=== PATIENT | male | born 1985 | race Caucasian/White ===

== ENCOUNTER 2016-11-19 13:37 | Emergency (ER) | payer MEDICAID, OTHER ==
[~2016-11-19] VITALS: Ht 177.8 cm; Wt 90.5 kg
[2016-11-19 13:56] VITALS: Ht 177.8 cm; Wt 90.5 kg
[2016-11-19] MEDS ORDERED: HYDROCODONE/APAP (10/325) TAB PO ONE (15:00)
--- NOTE | 2016-11-19 15:08 | ERD ---
ER Documentation Chief Complaint Date/Time DATE: 11/19/16 TIME: 15:00 Chief Complaint cough x 2 days, body aches HPI This is a 31 male who presented to the emergency Department taken plenty of headache, pain behind his eyes, body aches, fevers, intermittent cough, dizziness and diarrhea for the past 2 days. Patient states he is taking Advil but it is not helping. States that he thinks he had this one time before he had pneumonia. Denies any vomiting, or cough. ROS All systems reviewed and are negative except as per history of present illness. Medications Home Meds Active Scripts Guaifenesin-Dextromethorphan* (Robitussin* DM) 100MG/10MG/5ML Syrup, 10 ML PO Q4H Y for COUGH for 5 Days, ML Prov:TAYLER DUBON PA-C 11/19/16 Loperamide Hcl* (Imodium*) 2 Mg Capsule, 2 MG PO .AFTER EA LOOSE BM Y for DIARRHEA, #10 TAB Prov:TAYLER DUBONC 11/19/16 Hydrocodone/Acetaminophen (Cameron 10-325 Tablet) 1 Each Tablet, 1 TAB PO Q6H Y for PAIN, #10 TAB Prov:TAYLER DUBON PA-C 11/19/16 Acetaminophen* (Tylophen*) 500 Mg Capsule, 2 CAP PO Q8H Y for PAIN AND OR ELEVATED TEMP, #30 CAP Prov:TAYLER DUBONC 11/19/16 Ibuprofen* (Motrin*) 800 Mg Tab, 800 MG PO Q6, #30 TAB Prov:TAYLER DUBONC 11/19/16 Oseltamivir Phosphate* (Tamiflu*) 75 Mg Capsule, 75 MG PO BID for 5 Days, CAP Prov:TAYLER DUBON-C 11/19/16 Allergies Allergies: Coded Allergies: No Known Allergy (Unverified , 11/19/16) Physical Exam Vitals Vital Signs Date Time Temp Pulse Resp B/P Pulse Ox O2 Delivery O2 Flow Rate FiO2 11/19/16 13:56 98.3 118 20 139/76 97 Physical Exam Const: No acute distress Head: Atraumatic Eyes: Lateral conjunctival erythema. No purulent drainage. ENT: His TMs normal. Nose no drainage. Throat no erythema no exudate. Neck: Full range of motion..~ No meningismus. Resp: Clear to auscultation bilaterally. No absent breath sounds. No wheezing. Cardio: Regular rate and rhythm, no murmurs Abd: Soft, non tender, non distended. Normal bowel sounds Skin: No petechiae or rashes Neur: Awake and alert Psych: Normal Mood and Affect Results 24 hrs Current Medications Medications (Trade) Dose Ordered Sig/Xin Route PRN Reason Start Time Stop Time Status Last Admin Dose Admin Acetaminophen/ Hydrocodone Bitart (Cameron (10/325)) 1 tab ONCE ONCE PO 11/19/16 15:00 11/19/16 15:01 DC 11/19/16 15:20 Ketorolac Tromethamine (Toradol) 30 mg ONCE STAT IV 11/19/16 15:50 11/19/16 15:53 DC Procedures/MDM This is a 31-year-old male presents to the emergency department today with multiple complaints. Patient was complaining of dizziness and he was tachycardic on intake and therefore did obtain an EKG. patient is afebrile here in the emergency department. His only had intermittent cough Lungs are clear and I do not feel he requires a chest x-ray. EKG read and interpreted by luz maria Goldstein. Rate [address] elevation. No QT prolongation. Sinus tachycardia. Low suspicion for acute AK, PE, pericarditis Patient has no abdominal pain on physical exam. Low suspicion for any acute surgical abdomen Patient was given Cameron here in the emergency department for his headache and body aches. I will give him a prescription for Tylenol, Motrin, short course of Cameron, Imodium, Robitussin and Tamiflu for home At this time the patient is stable for discharge and outpatient management. Patient should follow up with their PCP in the next 1-2 days. They may return to the emergency department sooner for any persistent or worsening of symptoms. Patient understood and agreed with the plan. Prior to discharge patient was complaining that he was unable to walk and he does not feel that he has flu. Patient was complaining that he does not feel that his complaints were taken seriously and he thinks that there something worse wrong with him. I discussed this with both the patient and his . Patient did not want any of the prescriptions that he was prescribed. I discussed the patient with Dr. Goldstein and given that patient was complaining of difficulty walking the decision was made to obtain laboratory work, IV toradol, and a UA. Labs and UA was still pending at time of signout to Dr. Goldstein. Departure Diagnosis: Primary Impression: Influenza-like symptoms Condition: TAYLER Dee PA-C Nov 19, 2016 15:08
[2016-11-19] MEDS ORDERED: OSLT75C PO (15:14)
[2016-11-19] MEDS ORDERED: ACET500C5 PO (15:15)
[2016-11-19] MEDS ORDERED: HYDR-902 PO (15:15)
[2016-11-19] MEDS ORDERED: IBUP800T25 PO (15:15)
[2016-11-19] MEDS ORDERED: LOPE2CAP PO (15:16)
[2016-11-19] MEDS ORDERED: UDROBDM PO (15:18)
[2016-11-19] MEDS ORDERED: KETOROLAC 30 MG INJ IV STA (15:50)
[2016-11-19] MEDS ORDERED: ACETAMINOPHEN 500 MG TAB PO STA (16:09)
--- NOTE | 2016-11-19 16:34 | RADRPT ---
PROCEDURE: XR Chest. CLINICAL INDICATION: chest pain, cough TECHNIQUE: Single frontal view of the chest was obtained COMPARISON: None FINDINGS: The heart and mediastinum are within normal limits. The lungs are clear. There is no pleural effusion or pneumothorax. RPTAT: AA IMPRESSION: No acute disease. .Steve Driscoll MD, Date Time Electronically viewed and signed by .Steve Driscoll MD, on 11/19/2016 16:34 .S/
[2016-11-19 16:36] LABS: BASOPHILS % 0.5 % (0.0-2.0); EOSINOPHILS # 0.1 10^3/ul (0.0-0.5); EOSINOPHILS % 1.5 % (0.0-7.0); HEMATOCRIT 47.4 % (42.0-52.0); HEMOGLOBIN 16.2 g/dl (14.0-18.0); LYMPHOCYTES # 0.6 10^3/ul (0.8-2.9); LYMPHOCYTES % 7.5 % (15.0-51.0); MEAN CORPUSCULAR HEMOGLOBIN 29.1 pg (29.0-33.0); MEAN CORPUSCULAR HGB CONC 34.2 g/dl (32.0-37.0); MEAN CORPUSCULAR VOLUME 85.2 fl (82.0-101.0); MEAN PLATELET VOLUME 7.8 fl (7.4-10.4); MONOCYTE # 1.2 10^3/ul (0.3-0.9); MONOCYTES % 13.7 % (0.0-11.0); NEUTROPHIL # 6.5 10^3/ul (1.6-7.5); NEUTROPHILS % 76.8 % (39.0-77.0); PLATELET COUNT 214 10^3/UL (140-440); RED BLOOD COUNT 5.56 10^6/ul (4.70-6.10); RED CELL DISTRIBUTION WIDTH 12.6 % (11.5-14.5); UNCORRECTED WBC 8.4 10^3/ul (4.8-10.8); WHITE BLOOD COUNT 8.4 10^3/ul (4.8-10.8)
[2016-11-19 16:38] LABS: CONDITION 1
[2016-11-19 16:41] LABS: ALBUMIN 4.7 g/dl (3.3-4.9); CHLORIDE 103 mmol/L (97-110); SODIUM 143 mmol/L (135-144)
[2016-11-19 16:42] LABS: POTASSIUM 4.3 mmol/L (3.5-5.1)
[2016-11-19 16:44] LABS: ALANINE AMINOTRANSFERASE 150 IU/L (13-69); ALKALINE PHOSPHATASE 118 IU/L (42-121); ANION GAP 16 (8-16); ASPARTATE AMINO TRANSFERASE 86 IU/L (15-46); BILIRUBIN,INDIRECT 0.2 mg/dl (0-1.1); BILIRUBIN,TOTAL 0.2 mg/dl (0.2-1.3); BLOOD UREA NITROGEN 8 mg/dl (7-20); CARBON DIOXIDE 28 mmol/L (21-31); CREATININE 0.86 mg/dl (0.61-1.24); GLUCOSE 119 mg/dl (70-220); TOTAL PROTEIN 8.6 g/dl (6.1-8.1)
[2016-11-19 16:45] LABS: CALCIUM 9.1 mg/dl (8.4-10.2); CREATINE KINASE 114 IU/L (23-200)
[2016-11-19 16:53] LABS: CK-MB 0.41 ng/ml (0.0-2.4)
[2016-11-19 16:57] LABS: TROPONIN-I < 0.010 ng/ml (0.00-0.12)
--- NOTE | 2016-11-19 17:23 | ERD ---
ER Documentation Chief Complaint Date/Time DATE: 11/19/16 TIME: 17:22 Chief Complaint cough x 2 days, body aches ROS All systems reviewed and are negative except as per history of present illness. Medications Home Meds Active Scripts Guaifenesin-Dextromethorphan* (Robitussin* DM) 100MG/10MG/5ML Syrup, 10 ML PO Q4H Y for COUGH for 5 Days, ML Prov:TAYLER DUBON PA-C 11/19/16 Loperamide Hcl* (Imodium*) 2 Mg Capsule, 2 MG PO .AFTER EA LOOSE BM Y for DIARRHEA, #10 TAB Prov:TAYLER DUBONC 11/19/16 Hydrocodone/Acetaminophen (Coats 10-325 Tablet) 1 Each Tablet, 1 TAB PO Q6H Y for PAIN, #10 TAB Prov:TAYLER DUBON PA-C 11/19/16 Acetaminophen* (Tylophen*) 500 Mg Capsule, 2 CAP PO Q8H Y for PAIN AND OR ELEVATED TEMP, #30 CAP Prov:TAYLER DUBONC 11/19/16 Ibuprofen* (Motrin*) 800 Mg Tab, 800 MG PO Q6, #30 TAB Prov:TAYLER DUBON PA-C 11/19/16 Oseltamivir Phosphate* (Tamiflu*) 75 Mg Capsule, 75 MG PO BID for 5 Days, CAP Prov:TAYLER DUBONC 11/19/16 Allergies Allergies: Coded Allergies: No Known Allergy (Unverified , 11/19/16) PMhx/Soc History of Surgery: No Anesthesia Reaction: No Hx Neurological Disorder: No Hx Respiratory Disorders: No Hx Cardiac Disorders: No Hx Psychiatric Problems: No Hx Miscellaneous Medical Probl: No Hx Alcohol Use: No Hx Substance Use: No Hx Tobacco Use: No Physical Exam Vitals Vital Signs Date Time Temp Pulse Resp B/P Pulse Ox O2 Delivery O2 Flow Rate FiO2 11/19/16 17:15 99.2 11/19/16 16:08 102.7 11/19/16 13:56 98.3 118 20 139/76 97 Physical Exam Const: [] Head: Atraumatic Eyes: Normal Conjunctiva ENT: Normal External Ears, Nose and Mouth. Neck: Full range of motion..~ No meningismus. Resp: Clear to auscultation bilaterally Cardio: Regular rate and rhythm, no murmurs Abd: Soft, non tender, non distended. Normal bowel sounds Skin: No petechiae or rashes Back: No midline or flank tenderness Ext: No cyanosis, or edema Neur: Awake and alert Psych: Normal Mood and Affect Result Diagram: 11/19/16 1605 11/19/16 1605 Results 24 hrs Laboratory Tests Test 11/19/16 16:05 Alanine Aminotransferase (ALT/SGPT) 150IU/L Albumin 4.7g/dl Albumin/Globulin Ratio 1.20 Alkaline Phosphatase 118IU/L Anion Gap 16 Aspartate Amino Transf (AST/SGOT) 86IU/L Basophils # 0.010^3/ul Basophils % 0.5% Blood Urea Nitrogen 8mg/dl Calcium Level 9.1mg/dl Carbon Dioxide Level 28mmol/L Chloride Level 103mmol/L Creatine Kinase 114IU/L Creatine Kinase Index 0.4 Creatinine 0.86mg/dl Creatinine Kinase MB (Mass) 0.41ng/ml Direct Bilirubin 0.00mg/dl Eosinophils # 0.110^3/ul Eosinophils % 1.5% Globulin 3.90g/dl Glucose Level 119mg/dl Hematocrit 47.4% Hemoglobin 16.2g/dl Indirect Bilirubin 0.2mg/dl Lymphocytes # 0.610^3/ul Lymphocytes % 7.5% Mean Corpuscular Hemoglobin 29.1pg Mean Corpuscular Hemoglobin Concent 34.2g/dl Mean Corpuscular Volume 85.2fl Mean Platelet Volume 7.8fl Monocytes # 1.210^3/ul Monocytes % 13.7% Neutrophils # 6.510^3/ul Neutrophils % 76.8% Nucleated Red Blood Cells # 0.010^3/ul Nucleated Red Blood Cells % 0.0/100WBC Platelet Count 98066^3/UL Potassium Level 4.3mmol/L Red Blood Count 5.5610^6/ul Red Cell Distribution Width 12.6% Sodium Level 143mmol/L Total Bilirubin 0.2mg/dl Total Protein 8.6g/dl Troponin I < 0.010ng/ml White Blood Count 8.410^3/ul Current Medications Medications (Trade) Dose Ordered Sig/Xin Route PRN Reason Start Time Stop Time Status Last Admin Dose Admin Acetaminophen/ Hydrocodone Bitart (Coats (10/325)) 1 tab ONCE ONCE PO 11/19/16 15:00 11/19/16 15:01 DC 11/19/16 15:20 Ketorolac Tromethamine (Toradol) 30 mg ONCE STAT IV 11/19/16 15:50 11/19/16 15:53 DC 11/19/16 16:05 Acetaminophen (Tylenol Tab) 500 mg ONCE STAT PO 11/19/16 16:09 11/19/16 16:10 DC 11/19/16 16:47 Procedures/MDM Patient presents with URI symptoms and body aches. Patient presents with difficulty walking and pain out of proportion for exam. He did spike a temperature during his ED his course and was given Tylenol. I views obtained and patient was given Toradol 30 mm IV, CBC and CMP show no acute abnormalities except for slight transaminitis. CK-MB and troponin are negative for signs of rhabdomyolysis. Chest X-ray 1V Interpreted by me: Soft Tissue: No acute abnormalities Bones: No acute abnormalities Mediastinum/Cardiac Silhouette/Lungs: [No acute abnormalities]. Impression- normal 1 view chest x-ray Patient was noted to have improved symptoms and is amatory without significant discomfort on serial exam. Patient has a viral pattern of his CBC and patient likely has viral URI or influenza. He will be treated with prescriptions given for Tamiflu and instructions to follow-up with his primary doctor this week. He was advised otherwise return to the ER for any worsening symptoms. The patient was stable with no new complaints during the ER course. Clinically, there is no current evidence to suggest meningitis, sepsis, acute abdomen, pneumonia, acute coronary syndrome, pulmonary embolism, or any other emergent condition appearing to require further evaluation or hospitalization. The patient should certainly return for any new or worsening symptoms per the aftercare instructions. They should otherwise follow-up with her primary care doctor for reevaluation this week. Departure Diagnosis: Primary Impression: Influenza-like symptoms Condition: Fair Patient Instructions: Influenza (Adult) [facility] Usted se vines hecho un examen mdico de control que le indica que no est en minesh condicin que requiera tratamiento urgente en el Departamento de Emergencia. Un estudio ms profundo y el tratamiento de shannon condicin pueden esperar sin ningn riesgo hasta que usted sea atendida/o en el consultorio de shannon mdico o minesh cl alvaro. Es responsabilidad suya arreglar minesh troy para el seguimiento del mika. MANEJO DE CONDICIONES NO URGENTES EN EL FUTURO 1) Si usted tiene un mdico de atencin primaria: Usted debera llamar a shannon mdico de atencin primaria antes de venir al departamento de emergencia. Despus de las horas de consultorio, shannon doctor o shannon asociado/a est disponible por telfono. El mdico o enfermero de joan en el servicio telefnico puede asesorarle por vidal medio para atender el problema, o mika contrario se puede programar minesh troy. 2) Si usted no tiene un mdico de atencin primaria: Llame al mdico o clnica de referencia que aparece abajo ytler las horas de consultorio para hacer minesh troy para que le vean. CLINICAS: [facility] [phone] [facility] [facility] [phone] [facility]. [facility] [phone] [address] [facility]. [facility] [phone] [address] [facility]. [place] [id number] [phone] [facility]. [phone] [address] [facility]. [facility] YOU HAVE RECEIVED A MEDICAL SCREENING EXAM AND THE RESULTS INDICATE THAT YOU DO NOT HAVE A CONDITION THAT REQUIRES URGENT TREATMENT IN THE EMERGENCY DEPARTMENT. FURTHER EVALUATION AND TREATMENT OF YOUR CONDITION CAN WAIT UNTIL YOU ARE SEEN IN YOUR DOCTORS OFFICE WITHIN THE NEXT 1-2 DAYS. IT IS YOUR RESPONSIBILITY TO MAKE AN APPOINTMENT FOR FOLOW-UP CARE. IF YOU HAVE A PRIMARY DOCTOR --you should call your primary doctor and schedule an appointment IF YOU DO NOT HAVE A PRIMARY DOCTOR YOU CAN CALL OUR PHYSICIAN REFERRAL HOTLINE AT IF YOU CAN NOT AFFORD TO SEE A PHYSICIAN YOU CAN CHOSE FROM THE FOLLOWING [facility] CL[facility]ICS [facility] [address] [facility] [address] [facility] [facility] [address] [facility] [address] [facility]. [facility] [address] [facility]. [facility]. [address] Additional Instructions: Call your primary care doctor TOMORROW for an appointment during the next 1-2 days.See the doctor sooner or return here if your condition worsens before your appointment time. Tamiflu for flulike symptoms Coats for severe pain otherwise take Tylenol or Motrin Immodium for diarrhea Robitussin for cough GRAHAM HOSKINS MD Nov 19, 2016 17:23
[2016-11-19 17:26] LABS: URINE BLOOD (Dip) POC Negative (NEGATIVE)
[2016-11-19 17:49] VITALS: BP 132/75; PULSE 89; RESP 19; TEMP 98.9
== END 2016-11-19 17:50 | disposition home or self-care (01) ==
LOC: FTE 13:37
DX: R50.9 Fever, unspecified (principal); R05 Cough; R42 Dizziness and giddiness; R19.7 Diarrhea, unspecified; R52 Pain, unspecified
CPT/HCPCS: 71010; 80053; 81003; 82550; 82553; 84484; 85025; 93005; 96374; J1885; Z7502; Z7610